=== PATIENT | male | born 1965 | race Caucasian/White ===

== ENCOUNTER → 2016-05-28 | Day surgery (SDC) | payer BC | LOC: MSO 07:08 | DX: Z12.11 Encounter for screening for malignant neoplasm of colon (principal); K64.4 Residual hemorrhoidal skin tags | CPT/HCPCS: 00810; J7120 ==

== ENCOUNTER → 2017-09-18 | Outpatient (CLI) | payer BC | LOC: RAD 07:00 | DX: G93.89 Other specified disorders of brain (principal); R51 Headache | CPT/HCPCS: A9585 ==

== ENCOUNTER → 2017-09-23 | Outpatient (CLI) | payer BC | LOC: CARDREHAB 15:00 → VAS 15:00 → CARDREHAB 09-24 13:45 → CARDLAB 09-24 14:04 | DX: I07.1 Rheumatic tricuspid insufficiency (principal) ==